=== PATIENT | female | born 1990 | race African-American/Black ===

== ENCOUNTER 2016-05-19 22:07 | Emergency (ER) | payer BC, OTHER ==
[2016-05-19 22:32] VITALS: BP 115/69; PULSE 99; TEMP 97.9; BMI 28.1
--- NOTE | 2016-05-19 23:11 | PDOC ---
History of Present Illness - General History Source: Patient Exam Limitations: No Limitations - History of Present Illness Initial Comments: 05/19/16 23:19 Patient is a 25 year old female with a significant past medical history of asthma who presents to the ED with complaint of nausea and vomiting for 2 days. Patient notes that she was able to eat yesterday but has vomited everything today. She denies fever, chills, diarrhea, constipation. She denies dysuria, hematuria , frequency or hesitancy. Denies sick contacts or recent travel. PCP- Dr. Deras <Maggie Abel - Last Filed: 05/19/16 23:19> - General History Source: Patient <Anthony Bhat - Last Filed: 05/20/16 00:56> - General Chief Complaint: Nausea/Vomiting Stated Complaint: VOMITING/FEVER/ABD PAIN Time Seen by Provider: 05/19/16 23:10 Past History <Maggie Abel - Last Filed: 05/19/16 23:19> - Past Medical History Asthma: Yes - Immunization History Immunization Up to Date: Yes - Psycho/Social/Smoking Cessation Hx Anxiety: No Suicidal Ideation: No Smoking Status: No Smoking History: Never smoked Have you smoked in the past 12 months: No Number of Cigarettes Smoked Daily: 0 Hx Alcohol Use: No Drug/Substance Use Hx: No Substance Use Type: None <Anthony Bhat - Last Filed: 05/20/16 00:56> - Past Medical History Allergies/Adverse Reactions: Allergies Allergy/AdvReac Type Severity Reaction Status Date / Time No Known Allergies Allergy Verified 05/19/16 22:30 Home Medications: Ambulatory Orders Budesonide/Formeterol Fumarate [SYMBICORT 160/4.5mcg -] 1 inh PO DAILY 05/19/16 Ipratropium/Albuterol Sulfate [Combivent Respimat Inhal [place]] 4 gm IH DAILY 08/30 Montelukast Na [Singulair -] 10 mg PO HS 05/19/16 Ondansetron [Zofran *Odt*] 4 mg SL TID #30 od.tablet 05/20/16 Review of Systems - Review of Systems Able to Perform ROS?: Yes Comments:: 05/19/16 23:20 CONSTITUTIONAL: Absent: fever, chills, diaphoresis, generalized weakness, malaise, loss of appetite HEENT: Absent: rhinorrhea, nasal congestion, throat pain, throat swelling, difficulty swallowing, mouth swelling, ear pain, eye pain, visual Changes CARDIOVASCULAR: Absent: chest pain, syncope, palpitations, irregular heart rate, lightheadedness , peripheral edema RESPIRATORY: Absent: cough, shortness of breath, dyspnea with exertion, orthopnea, wheezing, stridor, hemoptysis GASTROINTESTINAL: Present: nausea, vomiting Absent: abdominal pain, abdominal distension, diarrhea, constipation, melena, hematochezia GENITOURINARY: Absent: dysuria, frequency, urgency, hesitancy, hematuria, flank pain, genital pain MUSCULOSKELETAL: Absent: myalgia, arthralgia, joint swelling SKIN: Absent: rash, itching, pallor HEMATOLOGIC/IMMUNOLOGIC: Absent: easy bleeding, easy bruising, lymphadenopathy, frequent infections ENDOCRINE: Absent: unexplained weight gain, unexplained weight loss, heat intolerance, cold intolerance NEUROLOGIC: Absent: headache, focal weakness or paresthesias, dizziness, unsteady gait, seizure, mental status changes, bladder or bowel incontinence PSYCHIATRIC: Absent: anxiety, depression, suicidal or homicidal ideation, hallucinations. <Maggie Abel - Last Filed: 05/19/16 23:19> *Physical Exam - Vital Signs Last Vital Signs Temp Pulse Resp BP Pulse Ox 97.9 F 99 H 20 115/69 98 05/19/16 22:30 05/19/16 22:30 05/19/16 22:30 05/19/16 22:30 05/19/16 22:30 - Physical Exam Comments: 05/19/16 23:20 GENERAL: Well developed, well nourished. Awake and alert. In no acute distress. HEENT: +Dry mucous membranes. Normocephalic, atraumatic. PERRLA, EOMI. No conjunctival pallor. Sclerae are non-icteric. Oropharynx is clear. NECK: Supple. Full ROM. No JVD. Carotid pulses 2+ and symmetric, without bruits. No thyromegaly. No lymphadenopathy. CARDIOVASCULAR: Regular rate and rhythm. No murmurs, rubs, or gallops. Distal pulses are 2+ and symmetric. PULMONARY: No evidence of respiratory distress. Lungs clear to auscultation bilaterally. No wheezing, rales or rhonchi. ABDOMINAL: Soft. Non-tender. Non-distended. No rebound or guarding. No organomegaly. Normoactive bowel sounds. MUSCULOSKELETAL Normal range of motion at all joints. No bony deformities or tenderness. No CVA tenderness. EXTREMITIES: No cyanosis. No clubbing. No edema. No calf tenderness. SKIN: Warm and dry. Normal capillary refill. No rashes. No jaundice. NEUROLOGICAL: Alert, awake, appropriate. Cranial nerves 2-12 intact. No deficits to light touch and temperature in face, upper extremities and lower extremities. No motor deficits in the in face, upper extremities and lower extremities. Normoreflexic in the upper and lower extremities. Normal speech. PSYCHIATRIC: Cooperative. Good eye contact. Appropriate mood and affect. <Maggie Abel - Last Filed: 05/19/16 23:19> - Vital Signs Last Vital Signs Temp Pulse Resp BP Pulse Ox 97.9 F 99 H 20 115/69 98 05/19/16 22:30 05/19/16 22:30 05/19/16 22:30 05/19/16 22:30 05/19/16 22:30 <Anthony Bhat - Last Filed: 05/20/16 00:56> Medical Decision Making - Medical Decision Making 05/20/16 00:53 Dr. Bhat: The scribe's documentation has been prepared under my direction and personally reviewed by me in its entirery. I confirm that the note above accurately reflects all work, treatment, procedures, and medical decision making performed by me. Pt found to have trace Ketones in her urine. Pt however was able to tolerate PO fluids after zofran ODT. Pt will be discharge and follow up with her pcp. <Anthony hBat - Last Filed: 05/20/16 00:56> *DC/Admit/Observation/Transfer - Attestations Scribe Attestion: 05/19/16 23:21 Documentation prepared by STEPHEN Fleming, acting as medical apparatus model maker for Anthony Bhat MD/DO. <Maggie Abel - Last Filed: 05/19/16 23:19> - Discharge Dispostion Admit: No <Anthony Bhat - Last Filed: 05/20/16 00:56> Diagnosis at time of Disposition: Nausea & vomiting Qualifiers: Vomiting type: unspecified Vomiting Intractability: non-intractable Qualified Code(s): R11.2 - Nausea with vomiting, unspecified - Discharge Dispostion Disposition: HOME Condition at time of disposition: Stable - Referrals Referrals: Huong Munoz MD [Primary Care Provider] - - Patient Instructions Printed Discharge Instructions: DI for Nausea -- Adult, DI for Vomiting -- Adult Additional Instructions: Please use medication as directed for the next three days. use Tylenol or Motrin for pain and fever. follow up with your doctor as needed. - Post Discharge Activity Work/School Note: Back to Work
[2016-05-19] MEDS ORDERED: ONDANSETRON *ODT* 4 MG TABLET SL ONE (23:16)
[2016-05-19] MEDS ORDERED: ONDANSETRON *ODT* 4 MG TABLET ONE (23:21)
[2016-05-20 00:44] LABS: URINE APPEARANCE CLOUDY; URINE BILIRUBIN NEGATIVE (NEGATIVE); URINE BLOOD NEGATIVE (NEGATIVE); URINE COLOR YELLOW; URINE GLUCOSE (UA) NEGATIVE (NEGATIVE); URINE KETONE TRACE (NEGATIVE); URINE LEUK ESTERASE NEGATIVE (NEGATIVE); URINE NITRITE NEGATIVE (NEGATIVE); URINE PROTEIN 1+ (NEGATIVE); URINE UROBILINOGEN NEGATIVE E.U./dl (0.2-1.0)
[2016-05-20 00:47] LABS: URINE MUCUS MANY; URINE RBC 2 /hpf (0-3); URINE WBC 3 /hpf (3-5)
== END 2016-05-20 01:04 | disposition home or self-care (01) ==
LOC: JER 22:07
DX: R11.2 Nausea with vomiting, unspecified (principal); J45.909 Unspecified asthma, uncomplicated
CPT/HCPCS: 81003; 81015; 84703; 99283-25

== ENCOUNTER 2017-05-19 23:34 | Emergency (ER) | payer OTHER ==
[2017-05-19 23:50] VITALS: BP 130/81; PULSE 94; TEMP 98.6; BMI 33.6
[2017-05-20] MEDS ORDERED: OSELTAMIVIR PHOSPHATE 75 MG CAPSULE PO ONE (01:09)
--- NOTE | 2017-05-20 01:09 | PDOC ---
History of Present Illness - General Exam Limitations: No Limitations - History of Present Illness Initial Comments: 05/20/17 01:11 The patient is a 26 year old female with no significant past medical history who presents to the ED complaining of approximately 2 days of fever (Tmax 101), chills, malaise, body aches, and nasal congestion. Unknown sick contacts. No wheezing or hemoptysis. No urinary complaints. No nausea, vomiting, or diarrhea. <Akanksha Cruz - Last Filed: 05/20/17 01:11> - General History Source: Patient <LamineAnthony shoemaker - Last Filed: 05/20/17 19:12> - General Chief Complaint: Cold Symptoms Stated Complaint: COUGHING Time Seen by Provider: 05/20/17 01:05 Past History <Akanksha Cruz - Last Filed: 05/20/17 01:11> - Past Medical History Asthma: Yes COPD: No - Immunization History Immunization Up to Date: Yes - Suicide/Smoking/Psychosocial Hx Smoking Status: No Smoking History: Never smoked Have you smoked in the past 12 months: No Number of Cigarettes Smoked Daily: 0 Information on smoking cessation initiated: No Hx Alcohol Use: No Drug/Substance Use Hx: No Substance Use Type: None <Anthony Bhat - Last Filed: 05/20/17 19:12> - Past Medical History Allergies/Adverse Reactions: Allergies Allergy/AdvReac Type Severity Reaction Status Date / Time No Known Allergies Allergy Verified 05/19/17 23:48 Home Medications: Ambulatory Orders Budesonide/Formeterol Fumarate [SYMBICORT 160/4.5mcg -] 1 inh PO DAILY 05/19/16 Ipratropium/Albuterol Sulfate [Combivent Respimat Inhal [place]] 4 gm IH DAILY 08/30 Montelukast Na [Singulair -] 10 mg PO HS 05/19/16 Ondansetron [Zofran *Odt*] 4 mg SL TID #30 od.tablet 05/20/16 Ibuprofen [Motrin] 600 mg PO TID #30 tablet 05/20/17 Oseltamivir Phosphate [Tamiflu -] 75 mg PO BID #10 capsule 05/20/17 Review of Systems - Review of Systems Able to Perform ROS?: Yes Constitutional: Yes: Chills, Fever, Malaise HEENTM: Yes: Nose Congestion. No: Tinnitus Respiratory: No: Shortness of Breath, Wheezing, Productive cough Cardiac (ROS): No: Chest Pain, Palpitations ABD/GI: No: Diarrhea, Vomiting : No: Burning, Dysuria, Frequency, Hematuria Musculoskeletal: Yes: Muscle Pain Integumentary: No: Rash <HernandoAkanksha guerin - Last Filed: 05/20/17 01:11> *Physical Exam - Vital Signs Last Vital Signs Temp Pulse Resp BP Pulse Ox 98.6 F 94 H 20 130/81 98 05/19/17 23:49 05/19/17 23:49 05/19/17 23:49 05/19/17 23:49 05/19/17 23:49 - Physical Exam Comments: 05/20/17 01:13 GENERAL: Awake, alert, and fully oriented, in no acute distress HEAD: No signs of trauma EYES: PERRLA, EOMI, sclera anicteric, conjunctiva clear ENT: Auricles normal inspection, nares patent. Moist mucosa NECK: Normal ROM, supple, no JVD, or masses LUNGS: Breath sounds equal, clear to auscultation bilaterally. No wheezes, and no crackles HEART: Regular rate and rhythm, normal S1 and S2, no murmurs, rubs or gallops ABDOMEN: Soft, nontender, normoactive bowel sounds. No guarding, no rebound. No masses EXTREMITIES: Normal range of motion, no edema. No clubbing or cyanosis. No cords, erythema, or tenderness NEUROLOGICAL: Alert and oriented x 3. Moves all extremities. Face is symmetric. SKIN: Warm, Dry, normal turgor, no rashes or lesions noted. <Akanksha Cruz - Last Filed: 05/20/17 01:11> - Vital Signs Last Vital Signs Temp Pulse Resp BP Pulse Ox 98.6 F 94 H 20 130/81 98 05/19/17 23:49 05/19/17 23:49 05/19/17 23:49 05/19/17 23:49 05/19/17 23:49 <Anthony Bhat - Last Filed: 05/20/17 19:12> Medical Decision Making - Medical Decision Making 05/20/17 19:12 Dr. Bhat: The scribe's documentation has been prepared under my direction and personally reviewed by me in its entirery. I confirm that the note above accurately reflects all work, treatment, procedures, and medical decision making performed by me. <Anthony Bhat - Last Filed: 05/20/17 19:12> *DC/Admit/Observation/Transfer - Attestations Scribe Attestion: 05/20/17 01:14 Documentation prepared by Akanksha Cruz, acting as director of medical services for Anthony hBat DO. <Akanksha Cruz - Last Filed: 05/20/17 01:11> - Discharge Dispostion Admit: No <Anthony Bhat - Last Filed: 05/20/17 19:12> Diagnosis at time of Disposition: Influenza A - Discharge Dispostion Disposition: HOME Condition at time of disposition: Stable - Prescriptions Prescriptions: Ibuprofen [Motrin] 600 mg PO TID #30 tablet Oseltamivir Phosphate [Tamiflu -] 75 mg PO BID #10 capsule - Referrals Referrals: Huong Munoz MD [Primary Care Provider] - - Patient Instructions Printed Discharge Instructions: DI for Influenza -- Adult - Post Discharge Activity Forms/Work/School Notes: Back to Work
[2017-05-20] MEDS ORDERED: OSELTAMIVIR PHOSPHATE 75 MG CAPSULE ONE (01:44)
== END 2017-05-20 01:50 | disposition home or self-care (01) ==
LOC: JER 23:34
DX: J09.X2 Influenza due to identified novel influenza A virus with other respiratory manifestations (principal)
CPT/HCPCS: 99281-25

== ENCOUNTER 2018-05-08 19:40 | Emergency (ER) | payer OTHER ==
[2018-05-08 19:52] VITALS: BP 139/98; PULSE 86; TEMP 98.3; BMI 31.4
--- NOTE | 2018-05-08 20:29 | PDOC ---
History of Present Illness - General History Source: Patient Exam Limitations: No Limitations - History of Present Illness Initial Comments: 05/08/18 21:40 The patient is a 27 year old female, with a significant PMH of asthma and fibromyalgia, who presents to the emergency department with a sore throat and fever that began yesterday. The patient states she endorses associated symptoms headache, nasal congestion, ear pain, mild body ache and dysphagia. She reports her temperature yesterday was 100 and today it was 101, mild relief with Tylenol. The patient also mentions working at two high school. The patient denies anys sick contact and recent travel. The patient denies chest pain, shortness of breath, and dizziness. Denies, nausea, vomit, diarrhea and constipation. Denies dysuria, frequency, urgency and hematuria. Allergies: NKDA Past surgical history: None reported Social history: Denies alcohol, smoking and recreational drug use. PCP: Dr. Munoz <Spencer Lopez - Last Filed: 05/08/18 21:40> <Rylie Franks - Last Filed: 05/10/18 23:58> - General Chief Complaint: Cold Symptoms Stated Complaint: SINUS CONGESTION Time Seen by Provider: 05/08/18 19:46 Past History <Spencer Lopez - Last Filed: 05/08/18 21:40> - Past Medical History Asthma: Yes COPD: No Other medical history: FIBROMYALGIA - Immunization History Immunization Up to Date: Yes - Suicide/Smoking/Psychosocial Hx Smoking Status: No Smoking History: Never smoked Have you smoked in the past 12 months: No Number of Cigarettes Smoked Daily: 0 Hx Alcohol Use: No Drug/Substance Use Hx: No Substance Use Type: None <Rylie Franks - Last Filed: 05/10/18 23:58> - Past Medical History Allergies/Adverse Reactions: Allergies Allergy/AdvReac Type Severity Reaction Status Date / Time No Known Allergies Allergy Verified 05/19/17 23:48 Home Medications: Ambulatory Orders Montelukast Na [Singulair -] 10 mg PO HS 05/19/16 Albuterol Sulfate Inhaler - [Ventolin Hfa Inhaler -] 1 puff IH PRN PRN 05/08/18 Azithromycin [Zithromax 250mg Tablets -] 250 mg PO UTDICT #6 tab 05/08/18 Mometasone/Formoterol [Dulera 100 Mcg/5 Mcg Inhaler] 2 inh IH BID 05/08/18 Norethindrone AC-Eth Estradiol [Norethind-Eth Estrad 1-0.02 mg] 1 each PO DAILY 05/08/18 Pregabalin [Lyrica -] 150 mg PO TID 05/08/18 Umeclidinium [place] [Incruse Ellipta] 1 inh IH DAILY 05/08/18 Review of Systems - Review of Systems Able to Perform ROS?: Yes Comments:: 05/08/18 21:40 GENERAL/CONSTITUTIONAL: + fever. No chills. No weakness. HEAD, EYES, EARS, NOSE AND THROAT: +Sore throat. +Ear pain. No change in vision. No ear discharge. CARDIOVASCULAR: No chest pain or shortness of breath. RESPIRATORY: No cough, wheezing, or hemoptysis. GASTROINTESTINAL: No nausea, vomiting, diarrhea or constipation. GENITOURINARY: No dysuria, frequency, or change in urination. MUSCULOSKELETAL: No joint or muscle swelling or pain. No neck or back pain. SKIN: No rash NEUROLOGIC: +Headache. No vertigo, loss of consciousness, or change in strength/ sensation. ENDOCRINE: No increased thirst. No abnormal weight change. HEMATOLOGIC/LYMPHATIC: No anemia, easy bleeding, or history of blood clots. ALLERGIC/IMMUNOLOGIC: No hives or skin allergy. <Spencer Lopez - Last Filed: 05/08/18 21:40> *Physical Exam - Vital Signs Last Vital Signs Temp Pulse Resp BP Pulse Ox 98.3 F 86 16 139/98 100 05/08/18 19:44 05/08/18 19:44 05/08/18 19:44 05/08/18 19:44 05/08/18 19:44 - Physical Exam Comments: 05/08/18 21:41 GENERAL: Awake, alert, and fully oriented, in no acute distress HEAD: No signs of trauma EYES: PERRLA, EOMI, sclera anicteric, conjunctiva clear ENT: +Mild tenderness to palpation of the maxillary and frontal sinus bilaterally. Bilateral erythema of the pharynx and mild edema to the bilateral tonsil. No exudate or uvula asymmetric presence.Cervical lymphadenopathy bilaterally with mild erythema and tenderness. Neck supple. NECK: Normal ROM, supple, no lymphadenopathy, JVD, or masses LUNGS: + Bilateral expiratory wheezing with no other abnormal sounds heard. HEART: Regular rate and rhythm, normal S1 and S2, no murmurs, rubs or gallops ABDOMEN: Soft, nontender, normoactive bowel sounds. No guarding, no rebound. No masses EXTREMITIES: Normal range of motion, no edema. No clubbing or cyanosis. No cords, erythema, or tenderness NEUROLOGICAL: Cranial nerves II through XII grossly intact. Normal speech, normal gait SKIN: Warm, Dry, normal turgor, no rashes or lesions noted. <Spencer Lopez - Last Filed: 05/08/18 21:40> - Vital Signs Last Vital Signs Temp Pulse Resp BP Pulse Ox 98.3 F 86 16 139/98 100 05/08/18 19:44 05/08/18 19:44 05/08/18 19:44 05/08/18 19:44 05/08/18 19:44 <Rylie Franks - Last Filed: 05/10/18 23:58> Moderate Sedation - Procedure Monitoring Vital Signs: Procedure Monitoring Vital Signs Temperature 98.3 F 05/08/18 19:44 Pulse Rate 86 05/08/18 19:44 Respiratory Rate 16 05/08/18 19:44 Blood Pressure 139/98 05/08/18 19:44 O2 Sat by Pulse Oximetry (%) 100 05/08/18 19:44 <Spencer Lopez - Last Filed: 05/08/18 21:40> - Procedure Monitoring Vital Signs: Procedure Monitoring Vital Signs Temperature 98.3 F 05/08/18 19:44 Pulse Rate 86 05/08/18 19:44 Respiratory Rate 16 05/08/18 19:44 Blood Pressure 139/98 05/08/18 19:44 O2 Sat by Pulse Oximetry (%) 100 05/08/18 19:44 <Rylie Franks - Last Filed: 05/10/18 23:58> ED Treatment Course - Medications Given in the ED: ED Medications Discontinued Medications Generic Name Dose Route Start Last Admin Trade Name Freq PRN Reason Stop Dose Admin Albuterol/Ipratropium 1 amp 05/08/18 20:44 05/08/18 20:48 Duoneb - NEB 05/08/18 20:45 1 amp ONCE ONE Administration Ibuprofen 600 mg 05/08/18 21:14 05/08/18 21:17 Motrin - PO 05/08/18 21:15 600 mg ONCE ONE Administration <Spencer Lopez - Last Filed: 05/08/18 21:40> Progress Note - Progress Note Progress Note: Documentation has been prepared under my direction and personally reviewed by me in its entirety. I attest that this documented accurately reflects all work, treatment, procedures and medical decision making performed by me. <Rylie Franks - Last Filed: 05/10/18 23:58> Medical Decision Making - Medical Decision Making As noted above, this 27-year-old woman with a history of asthma presents with facial fullness/discomfort, nasal congestion. On exam, the patient has bilateral expiratory wheezing. Whether this is her baseline or indicative of bronchospasm secondary to bronchitis, the patient was given DuoNeb nebulizer treatment. After the nebulizer treatment. The patient felt significantly better. Clinical presentation most consistent with sinusitis/probable asthmatic bronchitis. She will be started on azithromycin Z-Artie course. She asked for ibuprofen now and was given dose. She should continue her asthma medications as prescribed. She should return to the emergency room if she has shortness of breath/high fever/persistent wheezing. Otherwise, she will follow-up with her doctor in the next 5 days <Rylie Franks - Last Filed: 05/10/18 23:58> *DC/Admit/Observation/Transfer - Attestations Scribe Attestion: 05/08/18 21:42 Documentation prepared by Spencer Lopez, acting as medical attendant for Rylie Franks MD. <Spencer Lopez - Last Filed: 05/08/18 21:40> <Rylie Franks - Last Filed: 05/10/18 23:58> Diagnosis at time of Disposition: Sinusitis Qualifiers: Sinusitis location: frontal Chronicity: acute Recurrence: non-recurrent Qualified Code(s): J01.10 - Acute frontal sinusitis, unspecified - Discharge Dispostion Disposition: HOME Condition at time of disposition: Stable - Prescriptions Prescriptions: Azithromycin [Zithromax 250mg Tablets -] 250 mg PO UTDICT #6 tab - Patient Instructions Printed Discharge Instructions: DI for Sinusitis Additional Instructions: Rest; drink plenty of water Continue asthma medications as prescribed Azithromycin (Z-Artie): Start tonight and taper as directed Ibuprofen as needed for throat pain; take this with food Return to ER if you have shortness of breath, persistent wheezing or high fever Follow-up with your doctor within the next 5 days - Post Discharge Activity Forms/Work/School Notes: Back to Work
[2018-05-08] MEDS ORDERED: ALBUTEROL SO4 2.5/IPRATROPIUM 0.5 INH SOL 3 ML VIAL.NEB. NEB ONE ×2 (20:44→20:46)
[2018-05-08] MEDS ORDERED: IBUPROFEN 600 MG TABLET (FP) PO ONE ×2 (21:14→21:16)
== END 2018-05-08 21:25 | disposition home or self-care (01) ==
LOC: FER 19:40
PROC: 3E0F7GC Introduction of Other Therapeutic Substance into Respiratory Tract, Via Natural or Artificial Opening (ICD-10-PCS; principal; 2018-05-08)
DX: J01.10 Acute frontal sinusitis, unspecified (principal)
CPT/HCPCS: 87070; 87804; 87880; 99282-25

== ENCOUNTER 2018-06-17 15:04 | Emergency (ER) | payer BC, OTHER ==
[2018-06-17] MEDS ORDERED: ALBUTEROL SO4 2.5/IPRATROPIUM 0.5 INH SOL 3 ML VIAL.NEB. NEB ONE ×2 (15:28→15:31)
--- NOTE | 2018-06-17 15:46 | PDOC ---
History of Present Illness - General History Source: Patient Exam Limitations: Clinical Condition - History of Present Illness Initial Comments: 06/17/18 15:40 Patient with history of asthma present with complaint of wheezing, nasal congestion, dry cough, fever, chills and body aches since yesterday. Patient reported wheezing has been worsening since this afternoon. Patient reported family member home with positive flu. Patient did not take anything for symptoms. Patient also reported mild right ankle pain after twisting her ankle on the curbside yesterday. Patient reported increased pain to right ankle with ambulation but has no problem with ambulation. Timing/Duration: 24 hours <Fabian Garsia - Last Filed: 06/17/18 17:23> <Leticia Bell - Last Filed: 06/19/18 13:44> - General Chief Complaint: Respiratory Stated Complaint: Cold Symptoms Time Seen by Provider: 06/17/18 15:27 Past History - Past Medical History Asthma: Yes COPD: No - Immunization History Immunization Up to Date: Yes - Suicide/Smoking/Psychosocial Hx Smoking Status: No Smoking History: Never smoked Have you smoked in the past 12 months: No Number of Cigarettes Smoked Daily: 0 Hx Alcohol Use: No Drug/Substance Use Hx: No Substance Use Type: None <Fabian Garsia - Last Filed: 06/17/18 17:23> <Leticia Bell - Last Filed: 06/19/18 13:44> - Past Medical History Allergies/Adverse Reactions: Allergies Allergy/AdvReac Type Severity Reaction Status Date / Time No Known Allergies Allergy Verified 05/19/17 23:48 Home Medications: Ambulatory Orders Montelukast Na [Singulair -] 10 mg PO HS 05/19/16 Albuterol Sulfate Inhaler - [Ventolin Hfa Inhaler -] 1 puff IH PRN PRN 05/08/18 Mometasone/Formoterol [Dulera 100 Mcg/5 Mcg Inhaler] 2 inh IH BID 05/08/18 Norethindrone AC-Eth Estradiol [Norethind-Eth Estrad 1-0.02 mg] 1 each PO DAILY 05/08/18 Pregabalin [Lyrica -] 150 mg PO TID 05/08/18 Umeclidinium [place] [Incruse Ellipta] 1 inh IH DAILY 05/08/18 Ipratropium [place] 2 spray NS BID PRN #1 spray 06/17/18 Methylprednisolone [Medrol Dose Artie] 4 mg PO ASDIR #21 tablet 06/17/18 Oseltamivir Phosphate [Tamiflu -] 75 mg PO DAILY #10 capsule 06/17/18 Review of Systems - Review of Systems Able to Perform ROS?: Yes Is the patient limited Ukrainian proficient: No Constitutional: Yes: Chills, Fever, Malaise HEENTM: Yes: Symptoms Reported, Nose Congestion. No: Eye Pain, Blurred Vision, Tearing, Recent change in vision, Double Vision, Cataracts, Ear Pain, Ocular Prothesis, Ear Discharge, Nose Pain, Tinnitus, Nose Bleeding, Hearing Loss, Throat Pain, Throat Swelling, Mouth Pain, Dental Problems, Difficulty Swallowing , Mouth Swelling, Other Respiratory: Yes: Symptoms reported, See HPI, Cough, Wheezing. No: Orthopnea, Shortness of Breath, SOB with Exertion, SOB at Rest, Stridor, Productive cough, Hemoptysis, Other Cardiac (ROS): No: Symptoms Reported, See HPI, Chest Pain, Edema, Irregular Heart Rate, Lightheadedness, Palpitations, Syncope, Chest Tightness, Other ABD/GI: No: Constipated, Diarrhea, Nausea, Vomiting, Abdominal cramping Neurological: Yes: Headache. No: Dizziness All Other Systems: Reviewed and Negative <Fabian Garsia - Last Filed: 06/17/18 17:23> *Physical Exam - Physical Exam Comments: 06/17/18 15:42 GENERAL: Well developed, well nourished. Awake and alert. No acute distress. HEENT: Normocephalic, atraumatic. PERRLA, EOMI. No conjunctival pallor. Sclera are non-icteric. Moist mucous membranes. Oropharynx is clear. NECK: Supple. Full ROM. CARDIOVASCULAR: Regular rate and rhythm. No murmurs, rubs, or gallops. Distal pulses are 2+ and symmetric. PULMONARY: Mild diffuse wheezing in mild evidence of respiratory distress. No rales or rhonchi. ABDOMINAL: Soft. Non-tender. Non-distended. No rebound or guarding. No organomegaly. Normoactive bowel sounds. MUSCULOSKELETAL Normal range of motion at all joints. mild tenderness to dorsum and anterior- lateral side of right ankle. no swelling to ankle. EXTREMITIES: No cyanosis. No clubbing. No edema. No calf tenderness. SKIN: Warm and dry. Normal capillary refill. no erythema of right ankle. NEUROLOGICAL: Alert, awake, appropriate. Gait is normal without ataxia. PSYCHIATRIC: Cooperative. Good eye contact. Appropriate mood 06/17/18 16:35 General Appearance: Yes: Nourished, Appropriately Dressed, Mild Distress <SunFabian - Last Filed: 06/17/18 17:23> - Vital Signs Last Vital Signs Temp Pulse Resp BP Pulse Ox 100.0 F H 113 H 18 128/80 99 06/17/18 15:52 06/17/18 15:52 06/17/18 15:52 06/17/18 15:52 06/17/18 15:52 <Leticia Bell - Last Filed: 06/19/18 13:44> ED Treatment Course - Medications Given in the ED: ED Medications Discontinued Medications Generic Name Dose Route Start Last Admin Trade Name Freq PRN Reason Stop Dose Admin Albuterol/Ipratropium 1 amp 06/17/18 15:28 06/17/18 17:56 Duoneb - NEB 06/17/18 15:29 1 amp ONCE ONE Administration <Leticia Bell - Last Filed: 06/19/18 13:44> Medical Decision Making - Medical Decision Making 06/17/18 15:43 Patient with history of asthma present with complaint of worsening cough, wheezing, nasal congestion, fever and chills. Patient also reported right ankle pain from twisting her ankle yesterday. Exam significant for mild diffuse wheezing with mild respiratory distress. Nebulizer treatment with Atrovent and ipratropium bromide started. Rapid flu tests ordered. X-ray of right ankle be ordered to rule out ankle fracture. Reassessed after nebulizer treatment 06/17/18 16:37 rapid flu test negative .Patient stable for outpatient management of viral URI. x-ray of right ankle still pending 06/17/18 17:23 ankle x-ray with no acute pathology. Patient is stable for outpatient management of ankle sprain with orthopedics follow-up <Fabian Garsia - Last Filed: 06/17/18 17:23> - Medical Decision Making The patient was seen and evaluated in conjunction with midlevel provider under my direct supervision, ancillary studies were reviewed. I agree with the plan as outlined by ROHITH Garsia. HPI, workup/dispo as outlined. VS reviewed, LGF and mild tachycardia, likely from viral illness/asthma - will treat appropriately as above and reassess, anticipate dc. 06/19/18 13:43 06/19/18 13:43 <BellLeticia - Last Filed: 06/19/18 13:44> *DC/Admit/Observation/Transfer - Discharge Dispostion Decision to Admit order: No <Fabian Garsia - Last Filed: 06/17/18 17:23> <Leticia Bellandra - Last Filed: 06/19/18 13:44> Diagnosis at time of Disposition: Asthma exacerbation Qualifiers: Asthma severity: mild Asthma persistence: intermittent Qualified Code(s): J45.21 - Mild intermittent asthma with (acute) exacerbation URI (upper respiratory infection) Qualifiers: URI type: unspecified viral URI Qualified Code(s): J06.9 - Acute upper respiratory infection, unspecified Right ankle sprain Qualifiers: Encounter type: initial encounter Involved ligament of ankle: unspecified ligament Qualified Code(s): S93.401A - Sprain of unspecified ligament of right ankle, initial encounter - Discharge Dispostion Disposition: HOME Condition at time of disposition: Stable - Prescriptions Prescriptions: Ipratropium [place] 2 spray NS BID PRN #1 spray PRN Reason: nasal congestion Methylprednisolone [Medrol Dose Artie] 4 mg PO ASDIR #21 tablet Oseltamivir Phosphate [Tamiflu -] 75 mg PO DAILY #10 capsule - Referrals Referrals: Huong Munoz MD [Primary Care Provider] - - Patient Instructions Printed Discharge Instructions: DI for Viral Upper Respiratory Infection -- Adult Additional Instructions: Your flu test was negative. Your symptoms are likely from viral infection. Take medications as prescribed. Increase fluid intake. Your ankle and foot x-rays shows no fracture or dislocation. your pain is likely from sprain. keep using ankle brace to help support ankle. Take motrin as needed for pain. Follow-up with referred orthopedics if no improvement in 5 days - Post Discharge Activity Forms/Work/School Notes: Back to Work
[2018-06-17 15:55] VITALS: BP 128/80; PULSE 113; TEMP 100; BMI 32.4
== END 2018-06-17 17:55 | disposition home or self-care (01) ==
LOC: JER 15:04
PROC: 3E0F7GC Introduction of Other Therapeutic Substance into Respiratory Tract, Via Natural or Artificial Opening (ICD-10-PCS; principal; 2018-06-17)
PROC: 2W3QXYZ Immobilization of Right Lower Leg using Other Device (ICD-10-PCS; 2018-06-17)
DX: J45.21 Mild intermittent asthma with (acute) exacerbation (principal); J06.9 Acute upper respiratory infection, unspecified; S93.401A Sprain of unspecified ligament of right ankle, initial encounter; X50.1XXA Overexertion from prolonged static or awkward postures, initial encounter; Y93.89 Activity, other specified; Y92.480 Sidewalk as the place of occurrence of the external cause; Y99.8 Other external cause status
CPT/HCPCS: 73610-TC-RT-FY; 73630-TC-RT-FY; 87804; 99282-25

== ENCOUNTER 2018-11-26 16:34 | Day surgery (SDC) | payer BC, OTHER ==
[2018-11-26] MEDS ORDERED: MEPOLIZUMAB 100 MG SQ SCH (17:00)
[2018-11-26 17:49] VITALS: BP 130/82; PULSE 94; TEMP 98.8
== END 2018-11-26 17:55 | disposition home or self-care (01) ==
LOC: JINFUSION 16:34 → J7W 16:36 → JINFUSION 17:55
PROVIDERS: ATTEND Internal Medicine
CPT/HCPCS: J2182

== ENCOUNTER 2018-12-22 16:56 | Emergency (ER) | payer BC, OTHER ==
[2018-12-22 17:01] VITALS: BP 137/88; PULSE 88; TEMP 97.9; BMI 33.6
--- NOTE | 2018-12-22 17:22 | PDOC ---
History of Present Illness - General Chief Complaint: Injury Stated Complaint: FALL/R/ANKLE AND/R FOOT PAIN - History of Present Illness Initial Comments: 12/22/18 17:18 CHIEF COMPLAINT: ankle pain HISTORY OF PRESENT ILLNESS: 28 yo F presents to fast track with R ankle pain x 2 days. Patient states she was running the other day and twisted her ankle. She has been weight bearing and ambulatory but she reports the pain has persisted. No recent travel or sick contacts. PAST MEDICAL HISTORY: Denies past medical history FAMILY HISTORY: Denies SOCIAL HISTORY: Denies tobacco, alcohol, illicit drug use. SURGICAL HISTORY: Denies ALLERGIES: No known drug allergies REVIEW OF SYSTEMS General/Constitutional: Denies fever or chills. Denies weakness, weight change. HEENT: Denies change in vision. Denies ear pain or discharge. Denies sore throat. Cardiovascular: Denies chest pain or shortness of breath. Respiratory: Denies cough, wheezing, or hemoptysis. Gastrointestinal: Denies nausea, vomiting, diarrhea or constipation. Denies rectal bleeding. Genitourinary: Denies dysuria, frequency, or change in urination. Musculoskeletal: R ankle pain. Skin and breasts: Denies rash or easy bruising. Neurologic: Denies headache, vertigo, loss of consciousness, or loss of sensation. Psychiatric: Denies depression or anxiety. PHYSICAL EXAM General Appearance: Well-appearing, appropriately dressed. No apparent distress. HEENT: EOMI, PERRLA, normal ENT inspection, normal voice, TMs normal, pharynx normal. No conjunctival pallor. No photophobia, scleral icterus. Neck: Supple. Trachea midline. No tenderness, rigidity, carotid bruit, stridor , lymphadenopathy, or thyromegaly. Respiratory/Chest: Lungs CTAB. No shortness of breath, chest tenderness, respiratory distress, accessory muscle use. No crackles, rales, rhonchi, stridor , wheezing, dullness Cardiovascular: RRR. S1, S2. No JVD, murmur, bradycardia, tachycardia. Gastrointestinal/Abdominal: Normal bowel sounds. Abdomen soft, non-distended. No tenderness or rebound tenderness. No organomegaly, pulsatile mass, guarding , hernia, hepatomegaly, splenomegaly. Lymphatic: No adenopathy, tenderness. Musculoskeletal/Extremities: Tenderness to R lateral malleolus, no erythema, ecchymosis, or swelling appreciated. FROM of all other extremities, normal capillary refill. Pelvis Stable. No CVA tenderness. No tenderness to extremities, pedal edema, swelling, erythema or deformity. Integumentary: Appropriate color, dry, warm. 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 Fully oriented, alert. Appropriate mood/affect. Motor strength 5/5. No appreciable EOM palsy, facial droop or sensory deficit. Past History - Past Medical History Allergies/Adverse Reactions: Allergies Allergy/AdvReac Type Severity Reaction Status Date / Time No Known Allergies Allergy Verified 12/22/18 17:00 Home Medications: Ambulatory Orders Montelukast Na [Singulair -] 10 mg PO HS 05/19/16 Albuterol Sulfate Inhaler - [Ventolin Hfa Inhaler -] 1 puff IH PRN PRN 05/08/18 Mometasone/Formoterol [Dulera 100 Mcg/5 Mcg Inhaler] 2 inh IH BID 05/08/18 Norethindrone AC-Eth Estradiol [Norethind-Eth Estrad 1-0.02 mg] 1 each PO DAILY 05/08/18 Pregabalin [Lyrica -] 150 mg PO TID 05/08/18 Umeclidinium [place] [Incruse Ellipta] 1 inh IH DAILY 05/08/18 Ipratropium [place] 2 spray NS BID PRN #1 spray 06/17/18 Methylprednisolone [Medrol Dose Artie] 4 mg PO ASDIR #21 tablet 06/17/18 Oseltamivir Phosphate [Tamiflu -] 75 mg PO DAILY #10 capsule 06/17/18 Diclofenac Sodium 75 mg PO BID #20 tablet. 12/22/18 Asthma: Yes COPD: No Other medical history: FIBROMYALGIA, MIGRAINES - Immunization History Immunization Up to Date: Yes - Psycho Social/Smoking Cessation Hx Smoking Status: No Smoking History: Never smoked Have you smoked in the past 12 months: No Number of Cigarettes Smoked Daily: 0 Hx Alcohol Use: No Drug/Substance Use Hx: No Substance Use Type: None *Physical Exam - Vital Signs Last Vital Signs Temp Pulse Resp BP Pulse Ox 97.9 F 88 16 137/88 99 12/22/18 16:58 12/22/18 16:58 12/22/18 16:58 12/22/18 16:58 12/22/18 16:58 ED Treatment Course - RADIOLOGY Radiology Studies Ordered: Category Date Time Status ANKLE & FOOT-RIGHT* [RAD] Stat Radiology 12/22/18 17:17 Ordered Medical Decision Making - Medical Decision Making 12/22/18 17:22 28 yo F presents to fast track with R ankle pain x 2 days. -xray 12/22/18 17:52 x-ray negative for fracture/dislocation. -nicolette bandage -crutches Advised patient to take medication as prescribed and follow up with ortho if symptoms persist past 1 week. Advised patient of signs and symptoms for return to ED. Patient verbalized understanding and agrees to plan. Discharge - Discharge Information Problems reviewed: No Clinical Impression/Diagnosis: Ankle sprain Qualifiers: Encounter type: initial encounter Involved ligament of ankle: unspecified ligament Laterality: right Qualified Code(s): S93.401A - Sprain of unspecified ligament of right ankle, initial encounter Condition: Stable Disposition: HOME - Admission No - Additional Discharge Information Prescriptions: Diclofenac Sodium 75 mg PO BID #20 tablet.dr - Follow up/Referral Referrals: Huong Munoz MD [Primary Care Provider] - Nilesh Schroeder DO [Staff Physician] - - Patient Discharge Instructions Patient Printed Discharge Instructions: DI for Ankle Sprain - Post Discharge Activity Work/Back to School Note: Back to Work
[2018-12-22] MEDS ORDERED: NAPROXEN 500 MG TABLET (FP) PO ONE (17:53)
[2018-12-22] MEDS ORDERED: NAPROXEN 500 MG TABLET (FP) ONE (17:57)
== END 2018-12-22 18:06 | disposition home or self-care (01) ==
LOC: JER 16:56 → JERFT 16:56
DX: S93.401A Sprain of unspecified ligament of right ankle, initial encounter (principal); X58.XXXA Exposure to other specified factors, initial encounter; Y93.02 Activity, running; Y92.9 Unspecified place or not applicable; J45.909 Unspecified asthma, uncomplicated; G43.909 Migraine, unspecified, not intractable, without status migrainosus; M79.7 Fibromyalgia
CPT/HCPCS: 73610-TC-RT-FY; 73630-TC-RT-FY; 99281-25

== ENCOUNTER 2018-12-28 16:25 | Day surgery (SDC) | payer BC, OTHER ==
[~2018-12-28 16:25] MED LIST: EPINEPHrine/PF 1 MG/1 ML (1:1,000) AMPULE SQ PRN; MEPOLIZUMAB 100 MG SQ ONE
[2018-12-28 16:46] VITALS: BP 118/78; PULSE 72; TEMP 97.8
== END 2018-12-28 16:48 | disposition home or self-care (01) ==
LOC: JINFUSION 16:25 → J7W 16:26 → JINFUSION 16:48
PROVIDERS: ATTEND Internal Medicine
PROC: 3E013GC Introduction of Other Therapeutic Substance into Subcutaneous Tissue, Percutaneous Approach (ICD-10-PCS; principal; 2018-12-28)
DX: J45.50 Severe persistent asthma, uncomplicated (principal)
CPT/HCPCS: 96372; J2182

== ENCOUNTER 2019-01-24 13:35 | Day surgery (SDC) | payer BC, OTHER ==
[2019-01-24] MEDS ORDERED: EPINEPHrine/PF 1 MG/1 ML (1:1,000) AMPULE SQ PRN (14:20)
[2019-01-24] MEDS ORDERED: MEPOLIZUMAB 100 MG SQ ONE (14:30)
[2019-01-24 16:36] VITALS: BP 119/80; PULSE 83; TEMP 98.2
== END 2019-01-24 14:10 | disposition home or self-care (01) ==
LOC: JINFUSION 13:35 → J7W 13:38 → JINFUSION 14:10
PROVIDERS: ATTEND Internal Medicine
PROC: 3E013GC Introduction of Other Therapeutic Substance into Subcutaneous Tissue, Percutaneous Approach (ICD-10-PCS; principal; 2019-01-24)
DX: J45.50 Severe persistent asthma, uncomplicated (principal)
CPT/HCPCS: J2182

== ENCOUNTER 2019-03-02 16:19 | Day surgery (SDC) | payer BC, OTHER ==
[2019-03-02] MEDS ORDERED: EPINEPHrine/PF 1 MG/1 ML (1:1,000) AMPULE SQ PRN (16:39)
[2019-03-02] MEDS ORDERED: MEPOLIZUMAB 100 MG SQ ONE (16:45)
[2019-03-02 17:31] VITALS: BP 128/75; PULSE 77; TEMP 97.7
== END 2019-03-02 17:38 | disposition home or self-care (01) ==
LOC: JINFUSION 16:19 → J7W 16:20 → JINFUSION 17:38
PROVIDERS: ATTEND Internal Medicine
PROC: 3E013GC Introduction of Other Therapeutic Substance into Subcutaneous Tissue, Percutaneous Approach (ICD-10-PCS; principal; 2019-03-02)
DX: J45.50 Severe persistent asthma, uncomplicated (principal)
CPT/HCPCS: 96372; J2182

== ENCOUNTER 2019-04-22 16:53 | Emergency (ER) | payer BC, OTHER ==
--- NOTE | 2019-04-22 17:14 | PDOC ---
Rapid Medical Evaluation Chief Complaint: Pain Time Seen by Provider: 04/22/19 17:12 Medical Evaluation: Allergies Allergy/AdvReac Type Severity Reaction Status Date / Time No Known Allergies Allergy Verified 12/22/18 17:00 04/22/19 17:13 28 year old female c/o right fifth toe pain after running it over with the shopping cart. c/po pain and swelling to the foot. patient si 8 weeks A: toe pain P: xray? Discharge Disposition - Diagnosis Toe pain, right - Referrals - Patient Instructions - Post Discharge Activity
[2019-04-22 17:19] VITALS: BP 131/71; PULSE 81; TEMP 98.2; BMI 35.9
--- NOTE | 2019-04-22 17:36 | PDOC ---
History of Present Illness - General Chief Complaint: Pain Stated Complaint: RT FOOT PAIN Time Seen by Provider: 04/22/19 17:12 History Source: Patient - History of Present Illness Occurred: reports: this afternoon Lower Extremity Pain Location: right: 5th toe Past History - Past Medical History Allergies/Adverse Reactions: Allergies Allergy/AdvReac Type Severity Reaction Status Date / Time No Known Allergies Allergy Verified 04/22/19 17:15 Home Medications: Ambulatory Orders Montelukast Na [Singulair -] 10 mg PO HS 05/19/16 Albuterol Sulfate Inhaler - [Ventolin Hfa Inhaler -] 1 puff IH PRN PRN 05/08/18 Mometasone/Formoterol [Dulera 100 Mcg/5 Mcg Inhaler] 2 inh IH BID 05/08/18 Norethindrone AC-Eth Estradiol [Norethind-Eth Estrad 1-0.02 mg] 1 each PO DAILY 05/08/18 Umeclidinium [place] [Incruse Ellipta] 1 inh IH DAILY 05/08/18 Oseltamivir Phosphate [Tamiflu -] 75 mg PO DAILY #10 capsule 06/17/18 Diclofenac Sodium 75 mg PO BID #20 tablet. 12/22/18 Asthma: Yes COPD: No - Immunization History Immunization Up to Date: Yes - Psycho Social/Smoking Cessation Hx Smoking Status: No Smoking History: Never smoked Have you smoked in the past 12 months: No Number of Cigarettes Smoked Daily: 0 Information on smoking cessation initiated: No Hx Alcohol Use: No Drug/Substance Use Hx: No Substance Use Type: None Review of Systems - Review of Systems Musculoskeletal: Yes: Joint Pain, Joint Swelling *Physical Exam - Vital Signs Last Vital Signs Temp Pulse Resp BP Pulse Ox 98.2 F 81 18 131/71 100 04/22/19 17:00 04/22/19 17:00 04/22/19 17:00 04/22/19 17:00 04/22/19 17:00 - Physical Exam General Appearance: Yes: Appropriately Dressed. No: Apparent Distress HEENT: positive: Normal Voice Neck: positive: Supple Respiratory/Chest: negative: Respiratory Distress Extremity: positive: Other (contusion to R 5th toe, no sig swelling) Integumentary: positive: Dry, Warm Neurologic: positive: Alert, Normal Mood/Affect Medical Decision Making - Medical Decision Making 04/22/19 17:35 28-year-old female currently 8 weeks with no issues of so far here with R 5th toe pain and swelling after shopping cart carrying " a lot of groceries" ran over her toe today see exam Toe contusion, r/o fx XR neg -dc w/ tylenol prn pain Discharge - Discharge Information Problems reviewed: Yes Clinical Impression/Diagnosis: Toe contusion Qualifiers: Encounter type: initial encounter Toe: lesser toe Damage to nail status: without damage Laterality: right Qualified Code(s): S90.121A - Contusion of right lesser toe(s) without damage to nail, initial encounter Condition: Good Disposition: HOME - Follow up/Referral Referrals: Huong Munoz MD [Primary Care Provider] - - Patient Discharge Instructions Patient Printed Discharge Instructions: Contusion Additional Instructions: Your xray did not show a fracture You can take tylenol for pain and use tape to catrachita tape affected toe to adjacent toe as discussed - Post Discharge Activity
== END 2019-04-22 17:50 | disposition home or self-care (01) ==
LOC: JER 16:53
DX: O99.89 Other specified diseases and conditions complicating pregnancy, childbirth and the puerperium (principal); S90.121A Contusion of right lesser toe(s) without damage to nail, initial encounter; W20.8XXA Other cause of strike by thrown, projected or falling object, initial encounter; Y93.89 Activity, other specified; Y92.512 Supermarket, store or market as the place of occurrence of the external cause; Y99.8 Other external cause status
CPT/HCPCS: 73660-TC-FY; 99281-25

== ENCOUNTER 2021-09-11 18:07 | Emergency (ER) | payer BC, OTHER ==
[2021-09-11 18:42] VITALS: BP 139/90; PULSE 87; TEMP 98.3; BMI 34.6
== END 2021-09-11 19:20 | disposition home or self-care (01) ==
LOC: FER 18:07
DX: L50.9 Urticaria, unspecified (principal)
CPT/HCPCS: 99281-25

== ENCOUNTER 2022-05-28 19:57 | Emergency (ER) | payer BC, OTHER ==
[2022-05-28 20:16] VITALS: BP 121/82; PULSE 91; RESP 18; TEMP 98; BMI 34.6
[2022-05-28] MEDS ORDERED: ALBUTEROL SO4 2.5/IPRATROPIUM 0.5 INH SOL 3 ML VIAL.NEB. NEB ONE ×2 (21:52→21:57)
[2022-05-28] MEDS ORDERED: predniSONE 20 MG TABLET (UD) PO ONE (21:53)
[2022-05-28] MEDS ORDERED: predniSONE 20 MG TABLET (UD) ONE (21:56)
== END 2022-05-28 23:30 | disposition home or self-care (01) ==
LOC: JERFT 19:57
PROC: 3E0F7GC Introduction of Other Therapeutic Substance into Respiratory Tract, Via Natural or Artificial Opening (ICD-10-PCS; principal; 2022-05-28)
DX: J45.909 Unspecified asthma, uncomplicated (principal)
CPT/HCPCS: 71046-TC-FY; 99283-25

== ENCOUNTER 2022-07-11 11:47 | Emergency (ER) | payer BC, OTHER ==
[2022-07-11 11:52] VITALS: BP 131/84; PULSE 94; RESP 18; TEMP 98; BMI 34.6
== END 2022-07-11 12:23 | disposition home or self-care (01) ==
LOC: FER 11:47
DX: S93.602A Unspecified sprain of left foot, initial encounter (principal); W20.8XXA Other cause of strike by thrown, projected or falling object, initial encounter
CPT/HCPCS: 99282-25

== ENCOUNTER 2023-05-28 13:31 | Emergency (ER) | payer BC, OTHER ==
[2023-05-28 13:39] VITALS: BP 143/90; PULSE 91; RESP 18; TEMP 97; BMI 31.4
[2023-05-28] MEDS ORDERED: IBUPROFEN 400 MG TABLET (FP) PO ONE (14:40)
[2023-05-28] MEDS: IBUPROFEN 400 MG TABLET (FP) PO ONE (14:41)
== END 2023-05-28 14:50 | disposition home or self-care (01) ==
LOC: JERFT 13:31
DX: S93.491A Sprain of other ligament of right ankle, initial encounter (principal); M25.571 Pain in right ankle and joints of right foot; W01.0XXA Fall on same level from slipping, tripping and stumbling without subsequent striking against object, initial encounter; Y93.01 Activity, walking, marching and hiking
CPT/HCPCS: 73610-TC-RT-FY; 73630-TC-RT-FY; 99283-25